=== PATIENT | female | born 1980 | race Caucasian/White ===

== ENCOUNTER 2017-04-11 13:48 | Emergency (ER) | payer MEDICAID ==
[~2017-04-11] VITALS: Ht 162.6 cm; Wt 86.2 kg
[2017-04-11] MEDS ORDERED: cloNIDine HCL 0.1 MG TAB ONE (14:24)
[2017-04-11] MEDS ORDERED: cloNIDine HCL 0.1 MG TAB PO ONE ×2 (14:30→16:45)
[2017-04-11 15:11] LABS: Basophils # (auto) 0 uL; Basophils % (auto) 0.4 % (0.0-2.0); Eosinophils # (auto) 0.1 uL; Eosinophils % (auto) 1.7 % (0.0-7.0); Hemoglobin 12.4 g/dL (12.2-16.2); Lymphocytes % (auto) 34.9 % (10.0-50.0); Mean Corpuscular Hemoglobin 26.3 pg (28.0-32.0); Mean Corpuscular Hgb Conc. 33.5 g/dL (32.0-36.0); Mean Corpuscular Volume 78.7 fL (80.0-100.0); Mean Platelet Volume 6.1 fL (6.9-10.8); Monocytes # (auto) 0.7 uL; Monocytes % (auto) 7.7 % (0.0-12.0); Neutrophils # (auto) 4.7 uL; Neutrophils % (auto) 55.3 % (37.0-80.0); Nucleated Red Blood Cells % 0.1 %; Platelet Count (auto) 366 10^3/uL (140-450); White Blood Cell 8.5 10^3/uL (4.4-10.8)
[2017-04-11 15:28] LABS: Albumin 3.4 g/dL (3.4-5.0); Anion Gap 4 (5-15); Aspartate Aminotransferase 27 U/L (15-37); BUN/Creatinine Ratio 15.7; Blood Urea Nitrogen 11 mg/dL (7-18); Calcium 8.5 mg/dL (8.5-10.1); Carbon Dioxide 29 mmol/L (21-32); Chloride 109 mmol/L (98-107); GFR African American 123 mL/min; GFR Non-African American 102 mL/min; Glucose 106 mg/dL (74-106); Sodium 142 mmol/L (136-145)
[2017-04-11 15:30] LABS: Alkaline Phosphatase 137 U/L (45-117); Bilirubin, Total < 0.1 mg/dL (0.2-1.0); Total Protein 7.6 g/dL (6.4-8.2)
[2017-04-11] MEDS ORDERED: LORazepam 2MG/ML-1ML VIAL IV ONE (16:45)
[2017-04-11] MEDS ORDERED: LABETALOL HCL 5 MG/ML 4ML SYRINGE IV ONE (17:15)
[2017-04-11 18:09] VITALS: BP 141/93
== END 2017-04-11 17:50 | disposition home or self-care (01) ==
LOC: ER 13:48
DX: I10 Essential (primary) hypertension (principal); E11.9 Type 2 diabetes mellitus without complications; F41.9 Anxiety disorder, unspecified; F17.210 Nicotine dependence, cigarettes, uncomplicated
CPT/HCPCS: 36415; 80053; 85025; 93005; 96374; 96375; 99285; J2060; J3490

== ENCOUNTER 2017-05-03 15:16 | Emergency (ER) | payer MEDICAID ==
[~2017-05-03] VITALS: Ht 162.6 cm; Wt 90.7 kg
[2017-05-03 15:33] VITALS: BP 153/104
== END 2017-05-03 15:57 | disposition home or self-care (01) ==
LOC: ER 15:21
DX: F41.9 Anxiety disorder, unspecified (principal); Z76.0 Encounter for issue of repeat prescription; G89.29 Other chronic pain; M54.40 Lumbago with sciatica, unspecified side; E11.9 Type 2 diabetes mellitus without complications; I10 Essential (primary) hypertension; F17.210 Nicotine dependence, cigarettes, uncomplicated

== ENCOUNTER 2017-05-24 13:59 | Emergency (ER) | payer MEDICAID ==
[~2017-05-24] VITALS: Ht 162.6 cm; Wt 90.7 kg
[2017-05-24 14:10] VITALS: BP 134/94
== END 2017-05-24 15:33 | disposition home or self-care (01) ==
LOC: ER 13:59
DX: J20.9 Acute bronchitis, unspecified (principal); F41.9 Anxiety disorder, unspecified; E11.9 Type 2 diabetes mellitus without complications; I10 Essential (primary) hypertension; F17.210 Nicotine dependence, cigarettes, uncomplicated

== ENCOUNTER 2017-06-02 03:05 | Emergency (ER) | payer MEDICAID ==
[~2017-06-02] VITALS: Ht 162.6 cm; Wt 90.7 kg
[2017-06-02 03:53] VITALS: BP 108/87
[2017-06-02] MEDS ORDERED: LORazepam 0.5 MG TAB PO ONE (04:00)
== END 2017-06-02 04:04 | disposition home or self-care (01) ==
LOC: ER 03:06
DX: F41.0 Panic disorder [episodic paroxysmal anxiety] (principal); E11.9 Type 2 diabetes mellitus without complications; I10 Essential (primary) hypertension; F17.210 Nicotine dependence, cigarettes, uncomplicated

== ENCOUNTER 2017-06-10 15:44 | Emergency (ER) | payer MEDICAID ==
[~2017-06-10] VITALS: Ht 162.6 cm; Wt 81.6 kg
[2017-06-10 17:13] VITALS: BP 160/102
== END 2017-06-10 17:50 | disposition home or self-care (01) ==
LOC: ER 15:50
DX: F41.9 Anxiety disorder, unspecified (principal); E11.9 Type 2 diabetes mellitus without complications; I10 Essential (primary) hypertension; F17.210 Nicotine dependence, cigarettes, uncomplicated; Z76.0 Encounter for issue of repeat prescription

== ENCOUNTER 2017-06-17 19:47 | Emergency (ER) | payer MEDICAID ==
[~2017-06-17] VITALS: Ht 162.6 cm; Wt 95.7 kg
[2017-06-17 20:53] VITALS: BP 151/98
[2017-06-17] MEDS ORDERED: ALPRAZolam 0.5 MG TAB PO ONE (21:30)
== END 2017-06-17 21:39 | disposition home or self-care (01) ==
LOC: ER 19:47
DX: F41.9 Anxiety disorder, unspecified (principal); I10 Essential (primary) hypertension; E11.9 Type 2 diabetes mellitus without complications; F17.210 Nicotine dependence, cigarettes, uncomplicated; Z76.0 Encounter for issue of repeat prescription
CPT/HCPCS: 82962

== ENCOUNTER 2017-07-08 03:12 | Emergency (ER) | payer MEDICAID ==
[~2017-07-08] VITALS: Ht 162.6 cm; Wt 90.7 kg
[2017-07-08 03:27] VITALS: BP 160/100
== END 2017-07-08 04:40 | disposition home or self-care (01) ==
LOC: ER 03:12
DX: F41.9 Anxiety disorder, unspecified (principal); I10 Essential (primary) hypertension; E11.9 Type 2 diabetes mellitus without complications; F17.210 Nicotine dependence, cigarettes, uncomplicated; Z59.0 Homelessness
CPT/HCPCS: 82962

== ENCOUNTER 2017-07-13 03:01 | Emergency (ER) | payer MEDICAID ==
[~2017-07-13] VITALS: Ht 162.6 cm; Wt 90.7 kg
[2017-07-13] MEDS ORDERED: ALPRAZolam 0.5 MG TAB PO ONE (04:00)
[2017-07-13] MEDS ORDERED: cloNIDine HCL 0.1 MG TAB PO ONE (04:00)
[2017-07-13 04:05] LABS: Hemoglobin 12.9 g/dL (12.2-16.2); Lymphocytes # (auto) 3.6 uL; Mean Platelet Volume 6.5 fL (6.9-10.8); Monocytes # (auto) 0.8 uL; White Blood Cell 10.9 10^3/uL (4.4-10.8)
[2017-07-13 04:06] LABS: Urine RBC None Seen /hpf (0 - 4)
[2017-07-13 04:08] LABS: Basophils # (auto) 0.2 uL; Basophils % (auto) 1.4 % (0.0-2.0); Eosinophils # (auto) 0.1 uL; Eosinophils % (auto) 1.3 % (0.0-7.0); Hematocrit 38.6 % (36.0-46.0); Lymphocytes % (auto) 33.5 % (10.0-50.0); Mean Corpuscular Hemoglobin 26.7 pg (28.0-32.0); Mean Corpuscular Hgb Conc. 33.5 g/dL (32.0-36.0); Mean Corpuscular Volume 79.7 fL (80.0-100.0); Monocytes % (auto) 7.6 % (0.0-12.0); Neutrophils # (auto) 6.1 uL; Neutrophils % (auto) 56.2 % (37.0-80.0); Nucleated Red Blood Cells % 0.1 %; Platelet Count (auto) 445 10^3/uL (140-450); Red Cell Distribution Width 17.5 % (11.8-14.3)
[2017-07-13 04:17] LABS: Urine Bilirubin Negative (Negative); Urine Blood Negative /uL (Negative); Urine Color Colorless (Yellow); Urine Glucose Normal (Normal); Urine Ketone Negative (Negative); Urine Nitrite Negative (Negative); Urine Squamous Epithelial Cell FEW /hpf (<5); Urine Urobilinogen Normal (Negative)
[2017-07-13 06:00] VITALS: BP 144/72
[2017-07-13 08:24] LABS: Potassium 3.5 mmol/L (3.5-5.1)
[2017-07-13 08:25] LABS: BUN/Creatinine Ratio 17.1; Calcium 8.5 mg/dL (8.5-10.1)
== END 2017-07-13 07:36 | disposition home or self-care (01) ==
LOC: ER 03:03
DX: N39.0 Urinary tract infection, site not specified (principal); F17.210 Nicotine dependence, cigarettes, uncomplicated; E11.9 Type 2 diabetes mellitus without complications; I10 Essential (primary) hypertension; Z87.440 Personal history of urinary (tract) infections
CPT/HCPCS: 36415; 80048; 81001; 81025; 84702; 85025

== ENCOUNTER 2017-07-15 22:02 | Emergency (ER) | payer MEDICAID ==
[~2017-07-15] VITALS: Ht 162.6 cm; Wt 68.0 kg
[2017-07-15] MEDS: cloNIDine HCL 0.1 MG TAB PO ONE (22:39)
[2017-07-15] MEDS: LORazepam 0.5 MG TAB PO ONE (22:58)
[2017-07-16 07:52] VITALS: BP 125/83
== END 2017-07-16 08:02 | disposition home or self-care (01) ==
LOC: EDBD 22:02 → ER 22:06
DX: S93.402A Sprain of unspecified ligament of left ankle, initial encounter (principal); F41.9 Anxiety disorder, unspecified; I16.0 Hypertensive urgency; E11.9 Type 2 diabetes mellitus without complications; F17.210 Nicotine dependence, cigarettes, uncomplicated; Z87.440 Personal history of urinary (tract) infections; W19.XXXA Unspecified fall, initial encounter; Y93.89 Activity, other specified; Y92.89 Other specified places as the place of occurrence of the external cause; Y99.8 Other external cause status
CPT/HCPCS: 73610; 81025

== ENCOUNTER 2017-08-20 03:49 | Emergency (ER) | payer MEDICAID ==
[~2017-08-20] VITALS: Ht 162.6 cm; Wt 92.5 kg
[2017-08-20 04:32] VITALS: BP 203/126
[2017-08-20] MEDS ORDERED: cloNIDine HCL 0.1 MG TAB PO ONE (04:45)
[2017-08-20] MEDS ORDERED: KETOROLAC TROMETH 60MG/2ML VIAL IM ONE (05:00)
[2017-08-20] MEDS ORDERED: HYDROcodone-ACET 10/325MG TAB PO ONE (05:15)
== END 2017-08-20 06:07 | disposition home or self-care (01) ==
LOC: ER 03:53
DX: S33.5XXA Sprain of ligaments of lumbar spine, initial encounter (principal); M54.30 Sciatica, unspecified side; E11.9 Type 2 diabetes mellitus without complications; I10 Essential (primary) hypertension; G89.29 Other chronic pain; M54.9 Dorsalgia, unspecified; F17.210 Nicotine dependence, cigarettes, uncomplicated; Z87.440 Personal history of urinary (tract) infections; X58.XXXA Exposure to other specified factors, initial encounter; Y93.89 Activity, other specified; Y92.89 Other specified places as the place of occurrence of the external cause; Y99.8 Other external cause status
CPT/HCPCS: 96372; 99283; J1885

== ENCOUNTER 2017-09-14 02:51 | Emergency (ER) | payer MEDICAID ==
[~2017-09-14] VITALS: Ht 162.6 cm; Wt 90.7 kg
[2017-09-14 03:02] VITALS: BP 174/116
[2017-09-14] MEDS ORDERED: cloNIDine HCL 0.1 MG TAB ONE (03:08)
[2017-09-14] MEDS ORDERED: clonazePAM 0.5 MG TAB PO ONE (03:15)
[2017-09-14] MEDS ORDERED: cloNIDine HCL 0.1 MG TAB PO ONE (03:15)
[2017-09-14 04:06] LABS: Urine Bacteria NONE SEEN /hpf (None Seen); Urine Blood TRACE /uL (Negative); Urine Mucus FEW (None Seen); Urine Specific Gravity 1.014 (1.001-1.035); Urine WBC 8 /hpf (0 - 5)
== END 2017-09-14 05:34 | disposition left against medical advice (07) ==
LOC: ER 02:53
DX: M54.9 Dorsalgia, unspecified (principal); Z53.21 Procedure and treatment not carried out due to patient leaving prior to being seen by health care provider
CPT/HCPCS: 81001; 81025

== ENCOUNTER 2017-09-23 00:05 | Emergency (ER) | payer MEDICAID ==
[~2017-09-23] VITALS: Ht 162.6 cm; Wt 86.2 kg
[2017-09-23 02:01] VITALS: BP 142/98
== END 2017-09-23 02:45 | disposition home or self-care (01) ==
LOC: ER 00:05
DX: F41.9 Anxiety disorder, unspecified (principal); E11.9 Type 2 diabetes mellitus without complications; F17.210 Nicotine dependence, cigarettes, uncomplicated; I10 Essential (primary) hypertension; Z87.440 Personal history of urinary (tract) infections

== ENCOUNTER 2017-10-27 02:14 | Emergency (ER) | payer OTHER, MEDICAID ==
[~2017-10-27] VITALS: Ht 160 cm; Wt 91.2 kg
[2017-10-27 02:20] VITALS: BP 181/118
[2017-10-27] MEDS ORDERED: cloNIDine HCL 0.1 MG TAB ONE (02:45)
[2017-10-27 04:29] LABS: Urine Bacteria NONE SEEN /hpf (None Seen); Urine Blood Negative /uL (Negative); Urine Specific Gravity 1.011 (1.001-1.035); Urine WBC 1 /hpf (0 - 5)
== END 2017-10-27 06:36 | disposition left against medical advice (07) ==
LOC: ER 02:14
DX: M54.9 Dorsalgia, unspecified (principal); R21 Rash and other nonspecific skin eruption; Z53.21 Procedure and treatment not carried out due to patient leaving prior to being seen by health care provider
CPT/HCPCS: 81001

== ENCOUNTER 2017-11-18 23:33 | Observation (INO) | payer OTHER ==
[~2017-11-18] VITALS: Ht 162.6 cm; Wt 89.8 kg
[2017-11-19] MEDS ORDERED: SODIUM CHLORIDE 0.9% 1,000 ML IV ONE
[2017-11-19 00:16] LABS: Basophils # (auto) 0 uL; Basophils % (auto) 0.3 % (0.0-2.0); Eosinophils # (auto) 0.2 uL; Eosinophils % (auto) 1.5 % (0.0-7.0); Hematocrit 41.3 % (36.0-46.0); Hemoglobin 13.6 g/dL (12.2-16.2); Lymphocytes # (auto) 3.6 uL; Mean Corpuscular Hemoglobin 27.5 pg (28.0-32.0); Mean Corpuscular Hgb Conc. 32.8 g/dL (32.0-36.0); Monocytes # (auto) 0.8 uL; Neutrophils # (auto) 7.4 uL; Neutrophils % (auto) 61.2 % (37.0-80.0); Platelet Count (auto) 409 10^3/uL (140-450); Red Blood Cells 4.92 10^6/uL (4.0-5.20); Red Cell Distribution Width 15.5 % (11.8-14.3); White Blood Cell 12.1 10^3/uL (4.4-10.8)
[2017-11-19 00:25] LABS: Urine Bacteria NONE SEEN /hpf (None Seen); Urine WBC 10 /hpf (0 - 5)
[2017-11-19 00:26] LABS: Urine Blood 1+ /uL (Negative); Urine Specific Gravity 1.022 (1.001-1.035)
[2017-11-19 00:32] LABS: Alanine Aminotransferase 24 U/L (13-56); Albumin 3.7 g/dL (3.4-5.0); Anion Gap 9 (5-15); Aspartate Aminotransferase 19 U/L (15-37); Blood Alcohol < 3.0 mg/dL (0-5); Calcium 8.8 mg/dL (8.5-10.1); Carbon Dioxide 24 mmol/L (21-32); Chloride 106 mmol/L (98-107); Glucose 217 mg/dL (74-106); Potassium 3.8 mmol/L (3.5-5.1); Salicylate 1.9 mg/dL (2.8-20.0); Sodium 139 mmol/L (136-145)
[2017-11-19 00:33] LABS: Acetaminophen < 2.0 ug/mL (10-30)
[2017-11-19 00:35] LABS: Alcohol, Urine < 3.0 mg/dL (0-5); Amphetamine Screen, Urine NEGATIVE (NEGATIVE); Barbiturate Scree,Urine NEGATIVE (NEGATIVE); Benzodiazephine Screen, Urine NEGATIVE (NEGATIVE); Cannabinoid Screen, Urine NEGATIVE (NEGATIVE); Cocaine Screen, Urine NEGATIVE (NEGATIVE); Opiate Scree,Urine NEGATIVE (NEGATIVE); Phencyclidine Screen, Urine POSITIVE (NEGATIVE)
[2017-11-19 00:41] LABS: Alkaline Phosphatase 117 U/L (45-117); BUN/Creatinine Ratio 17.8; Bilirubin, Total 0.2 mg/dL (0.2-1.0); Blood Urea Nitrogen 13 mg/dL (7-18); GFR African American 117 mL/min; GFR Non-African American 96 mL/min; Total Protein 8.1 g/dL (6.4-8.2)
[2017-11-19] MEDS ORDERED: ACETAMINOPHEN 325 MG TAB PO ONE (02:45)
[2017-11-19] MEDS ORDERED: cloNIDine HCL 0.1 MG TAB PO ONE (06:30)
[2017-11-19] MEDS ORDERED: IBUPROFEN 800 MG TAB PO PRN (10:30)
[2017-11-19] MEDS ORDERED: GABAPENTIN 300 MG CAP ONE (15:32)
[2017-11-19] MEDS ORDERED: LORazepam 0.5 MG TAB PO ONE (16:30)
[2017-11-19 20:16] VITALS: BP 139/96
[2017-11-19] MEDS ORDERED: metFORMIN HYDROCHLORIDE 500 MG TAB PO SCH (22:00)
[2017-11-19] MEDS ORDERED: ACCU-CHEK COMFORT CURVE STRIP VI SCH (22:00)
[2017-11-19] MEDS ORDERED: GABAPENTIN 300 MG CAP PO SCH (22:00)
[2017-11-20] MEDS ORDERED: LISINOPRIL 20 MG TAB PO SCH (10:00)
[2017-11-20] MEDS ORDERED: CITALOPRAM HYDROBR 20 MG TAB PO SCH (10:00)
== END 2017-11-19 20:25 | disposition short-term general hospital (02) | DRG 880 ==
LOC: ER 23:35 → OVERFLOW 23:36 → ER 11-19 20:25
PROVIDERS: ADMIT Emergency Medicine; ATTEND Emergency Medicine
DX: R45.851 Suicidal ideations (principal); E11.9 Type 2 diabetes mellitus without complications; F32.9 Major depressive disorder, single episode, unspecified; F41.9 Anxiety disorder, unspecified; I10 Essential (primary) hypertension; F17.210 Nicotine dependence, cigarettes, uncomplicated
CPT/HCPCS: 36415; 71045; 80053; 80307; 80320; 80329; 81001; 81025; 82962; 83735; 85025; 93005; 96360; 96361; 99285; G0378; J7030

== ENCOUNTER 2018-05-26 19:14 | Emergency (ER) | payer MEDICAID, OTHER ==
[~2018-05-26] VITALS: Ht 162.6 cm; Wt 92.1 kg
[2018-05-26 19:25] VITALS: BP 196/91
[2018-05-26] MEDS ORDERED: cefTRIAXone SOD 1,000 MG VL IM ONE (20:15)
[2018-05-26] MEDS ORDERED: Acetam/CODEINE 120mg/12mg per 5mL UD PO ONE (20:15)
== END 2018-05-26 20:27 | disposition home or self-care (01) ==
LOC: ER 19:14
DX: J02.0 Streptococcal pharyngitis (principal); E11.9 Type 2 diabetes mellitus without complications; I10 Essential (primary) hypertension; F17.210 Nicotine dependence, cigarettes, uncomplicated
CPT/HCPCS: 96372; 99283; J0696

== ENCOUNTER 2018-05-26 23:20 | Emergency (ER) | payer MEDICAID, OTHER ==
[~2018-05-26] VITALS: Ht 160 cm; Wt 99.8 kg
[2018-05-26 23:27] VITALS: BP 156/91
[2018-05-27] MEDS ORDERED: LORazepam 2MG/ML-1ML VIAL IM ONE (06:00)
== END 2018-05-27 06:07 | disposition home or self-care (01) ==
LOC: EDBD 23:20 → ER 23:20
DX: F45.8 Other somatoform disorders (principal); F41.9 Anxiety disorder, unspecified; I10 Essential (primary) hypertension; F17.210 Nicotine dependence, cigarettes, uncomplicated
CPT/HCPCS: 96372; 99283; J2060

== ENCOUNTER 2018-06-01 15:48 | Emergency (ER) | payer MEDICAID ==
[~2018-06-01] VITALS: Ht 162.6 cm; Wt 90.7 kg
[2018-06-01] MEDS ORDERED: METOPROLOL TARTRATE 50 MG TAB PO ONE (16:15)
[2018-06-01] MEDS ORDERED: cloNIDine HCL 0.1 MG TAB PO ONE (16:15)
[2018-06-01] MEDS ORDERED: LORazepam 2MG/ML-1ML VIAL IM ONE (18:15)
[2018-06-01 18:26] VITALS: BP 158/98
== END 2018-06-01 18:37 | disposition home or self-care (01) ==
LOC: ER 16:01
DX: I10 Essential (primary) hypertension (principal); F41.1 Generalized anxiety disorder; F17.210 Nicotine dependence, cigarettes, uncomplicated; Z76.0 Encounter for issue of repeat prescription
CPT/HCPCS: 96372; 99283; J2060

== ENCOUNTER 2018-06-07 13:29 | Emergency (ER) | payer MEDICAID ==
[~2018-06-07] VITALS: Ht 162.6 cm; Wt 90.7 kg
[2018-06-07 14:17] VITALS: BP 153/105
== END 2018-06-07 15:15 | disposition home or self-care (01) ==
LOC: ER 13:29
DX: K04.7 Periapical abscess without sinus (principal); I10 Essential (primary) hypertension; F17.210 Nicotine dependence, cigarettes, uncomplicated

== ENCOUNTER 2018-10-22 04:53 | Emergency (ER) | payer MEDICAID ==
[~2018-10-22] VITALS: Ht 162.6 cm; Wt 90.7 kg
[2018-10-22] MEDS ORDERED: cloNIDine HCL 0.1 MG TAB PO ONE (05:15)
[2018-10-22] MEDS ORDERED: KETOROLAC TROMETH 60MG/2ML VIAL IM ONE (06:45)
[2018-10-22 07:05] VITALS: BP 158/100
== END 2018-10-22 07:43 | disposition home or self-care (01) ==
LOC: ER 04:53
DX: K08.89 Other specified disorders of teeth and supporting structures (principal); I10 Essential (primary) hypertension; F17.210 Nicotine dependence, cigarettes, uncomplicated
CPT/HCPCS: 96372; 99283; J1885

== ENCOUNTER 2018-12-17 03:44 | Emergency (ER) | payer MEDICAID ==
[~2018-12-17] VITALS: Ht 162.6 cm; Wt 86.2 kg
[2018-12-17] MEDS ORDERED: cloNIDine HCL 0.1 MG TAB PO ONE (04:30)
[2018-12-17] MEDS ORDERED: HYDROcodone-ACET 10/325MG TAB PO ONE (04:30)
[2018-12-17 06:11] LABS: Basophils # (auto) 0 uL; Basophils % (auto) 0.4 % (0.0-2.0); Eosinophils # (auto) 0.1 uL; Eosinophils % (auto) 0.9 % (0.0-7.0); Hemoglobin 11.7 g/dL (12.2-16.2); Lymphocytes # (auto) 2.3 uL; Lymphocytes % (auto) 21.6 % (10.0-50.0); Mean Corpuscular Hemoglobin 25.3 pg (28.0-32.0); Mean Corpuscular Hgb Conc. 32.5 g/dL (32.0-36.0); Mean Corpuscular Volume 77.9 fL (80.0-100.0); Monocytes # (auto) 0.7 uL; Monocytes % (auto) 6.8 % (0.0-12.0); Neutrophils # (auto) 7.4 uL; Neutrophils % (auto) 70.3 % (37.0-80.0); Nucleated Red Blood Cells % 0.1 %; Platelet Count (auto) 360 10^3/uL (140-450); Red Blood Cells 4.63 10^6/uL (4.0-5.20); Red Cell Distribution Width 18.8 % (11.8-14.3); White Blood Cell 10.5 10^3/uL (4.4-10.8)
[2018-12-17 06:29] LABS: Anion Gap 6 (5-15); Blood Urea Nitrogen 23 mg/dL (7-18); Calcium 8.6 mg/dL (8.5-10.1); Carbon Dioxide 24 mmol/L (21-32); Chloride 109 mmol/L (98-107); Glucose 149 mg/dL (74-106); Potassium 3.7 mmol/L (3.5-5.1); Sodium 139 mmol/L (136-145)
[2018-12-17 06:34] LABS: Alanine Aminotransferase 29 U/L (13-56); Albumin 3.3 g/dL (3.4-5.0); Alkaline Phosphatase 131 U/L (45-117); Aspartate Aminotransferase 22 U/L (15-37); BUN/Creatinine Ratio 29.9; Bilirubin, Total < 0.1 mg/dL (0.2-1.0); GFR African American 109 mL/min; GFR Non-African American 90 mL/min; Total Protein 7.5 g/dL (6.4-8.2)
[2018-12-17 07:00] LABS: Urine Amorphous Crystal FEW /hpf (None Seen); Urine Bacteria FEW /hpf (None Seen); Urine Blood Negative /uL (Negative); Urine Specific Gravity 1.021 (1.001-1.035); Urine WBC 6 /hpf (0 - 5)
[2018-12-17] MEDS ORDERED: LORazepam 0.5 MG TAB PO ONE (08:00)
[2018-12-17] MEDS ORDERED: cefTRIAXone SOD 1,000 MG VL IM ONE (08:15)
[2018-12-17 08:26] VITALS: BP 126/78
[2018-12-17] MEDS ORDERED: cefTRIAXone W LIDOCAINE 1 GM IM IM ONE (08:30)
[2018-12-17] MEDS ORDERED: cefTRIAXone SOD 1,000 MG VL ONE (08:46)
[2018-12-17] MEDS ORDERED: LIDOCAINE 2% (LOCAL ANESTH.) PF 5ml SDV ONE (08:46)
== END 2018-12-17 09:20 | disposition home or self-care (01) ==
LOC: ER 03:47
DX: S33.5XXA Sprain of ligaments of lumbar spine, initial encounter (principal); N39.0 Urinary tract infection, site not specified; M79.18 Myalgia, other site; I10 Essential (primary) hypertension; F17.210 Nicotine dependence, cigarettes, uncomplicated; X58.XXXA Exposure to other specified factors, initial encounter; Y93.89 Activity, other specified; Y92.89 Other specified places as the place of occurrence of the external cause; Y99.8 Other external cause status
CPT/HCPCS: 36415; 72125; 72131; 80053; 81001; 82962; 85025; 96372; 99284; J0696; J2001

== ENCOUNTER 2018-12-24 17:17 | Emergency (ER) | payer MEDICAID ==
[~2018-12-24] VITALS: Ht 162.6 cm; Wt 86.2 kg
[2018-12-24 17:27] VITALS: BP 173/108
== END 2018-12-24 20:51 | disposition left against medical advice (07) ==
LOC: ER 17:20
DX: Z76.0 Encounter for issue of repeat prescription (principal); Z53.21 Procedure and treatment not carried out due to patient leaving prior to being seen by health care provider

== ENCOUNTER 2019-04-05 05:35 | Emergency (ER) | payer MEDICAID ==
[~2019-04-05] VITALS: Ht 162.6 cm; Wt 94.5 kg
[2019-04-05] MEDS ORDERED: METOPROLOL TARTRATE 50 MG TAB PO ONE (06:45)
[2019-04-05] MEDS ORDERED: PROMETHAZINE HCL 25 MG/ML 1ML IM ONE (06:45)
[2019-04-05] MEDS ORDERED: cloNIDine HCL 0.1 MG TAB PO ONE (06:45)
[2019-04-05] MEDS ORDERED: HYDROmorphone HCL 2 MG/ML VL IM ONE (06:45)
[2019-04-05 07:59] VITALS: BP 169/110
== END 2019-04-05 08:09 | disposition home or self-care (01) ==
LOC: ER 05:35
DX: G89.29 Other chronic pain (principal); M54.5 Low back pain; F41.8 Other specified anxiety disorders; I10 Essential (primary) hypertension; E11.9 Type 2 diabetes mellitus without complications; F17.210 Nicotine dependence, cigarettes, uncomplicated
CPT/HCPCS: 96372; 99284; J1170; J2550

== ENCOUNTER 2019-04-14 08:27 | Emergency (ER) | payer MEDICAID ==
[~2019-04-14] VITALS: Ht 162.6 cm; Wt 93.0 kg
[2019-04-14] MEDS ORDERED: cloNIDine HCL 0.1 MG TAB PO ONE (09:45)
[2019-04-14 10:33] VITALS: BP 126/74
== END 2019-04-14 10:38 | disposition home or self-care (01) ==
LOC: ER 08:27
DX: F41.9 Anxiety disorder, unspecified (principal); I10 Essential (primary) hypertension; E11.9 Type 2 diabetes mellitus without complications; F17.210 Nicotine dependence, cigarettes, uncomplicated; Z87.440 Personal history of urinary (tract) infections

== ENCOUNTER 2019-09-04 00:23 | Emergency (ER) | payer MEDICAID ==
[~2019-09-04] VITALS: Ht 162.6 cm; Wt 95.3 kg
[2019-09-04] MEDS ORDERED: cloNIDine HCL 0.1 MG TAB ONE (00:45)
[2019-09-04] MEDS ORDERED: cloNIDine HCL 0.1 MG TAB PO ONE (01:00)
[2019-09-04] MEDS ORDERED: cefTRIAXone SOD 1,000 MG VL IM ONE (01:45)
[2019-09-04] MEDS ORDERED: TETANUS-DIPTH-ACEL PERTUSSIS 0.5ML SYRG IM ONE (01:45)
[2019-09-04] MEDS ORDERED: NEOMYCIN-BACITRACIN-POLYM UNITDOSE PKG TOP OINT TOP ONE (01:45)
[2019-09-04 03:06] LABS: Urine Bacteria FEW /hpf (None Seen); Urine Blood TRACE /uL (Negative); Urine Specific Gravity 1.008 (1.001-1.035); Urine WBC 2 /hpf (0 - 5)
[2019-09-04] MEDS ORDERED: ALPRAZolam 0.5 MG TAB PO ONE (03:15)
[2019-09-04 03:50] VITALS: BP 138/78
== END 2019-09-04 04:30 | disposition home or self-care (01) ==
LOC: ER 00:23
DX: S60.512A Abrasion of left hand, initial encounter (principal); S61.452A Open bite of left hand, initial encounter; I10 Essential (primary) hypertension; F41.9 Anxiety disorder, unspecified; N39.0 Urinary tract infection, site not specified; E11.9 Type 2 diabetes mellitus without complications; W54.0XXA Bitten by dog, initial encounter; Y93.89 Activity, other specified; Y92.89 Other specified places as the place of occurrence of the external cause; Y99.8 Other external cause status
CPT/HCPCS: 81001; 81025; 82962; 90471; 90715; 96372; 99284; J0696

== ENCOUNTER 2019-09-21 18:36 | Emergency (ER) | payer MEDICAID ==
[~2019-09-21] VITALS: Ht 162.6 cm; Wt 97.1 kg
[2019-09-21 18:42] VITALS: BP 109/77
[2019-09-21 19:31] LABS: Basophils # (auto) 0.1 uL; Basophils % (auto) 0.6 % (0.0-2.0); Eosinophils # (auto) 0.1 uL; Eosinophils % (auto) 0.8 % (0.0-7.0); Hematocrit 38.3 % (36.0-46.0); Hemoglobin 12.9 g/dL (12.2-16.2); Lymphocytes # (auto) 2.5 uL; Lymphocytes % (auto) 23.7 % (10.0-50.0); Mean Corpuscular Hgb Conc. 33.5 g/dL (32.0-36.0); Mean Corpuscular Volume 89.5 fL (80.0-100.0); Monocytes # (auto) 0.7 uL; Monocytes % (auto) 6.3 % (0.0-12.0); Neutrophils # (auto) 7.2 uL; Neutrophils % (auto) 68.6 % (37.0-80.0); Platelet Count (auto) 403 10^3/uL (140-450); Red Blood Cells 4.28 10^6/uL (4.0-5.20); Red Cell Distribution Width 14.5 % (11.8-14.3); White Blood Cell 10.5 10^3/uL (4.4-10.8)
[2019-09-21 19:50] LABS: Alanine Aminotransferase 29 U/L (13-56); Albumin 3.3 g/dL (3.4-5.0); Anion Gap 7 (5-15); BUN/Creatinine Ratio 20.9; Blood Urea Nitrogen 23 mg/dL (7-18); Calcium 8.8 mg/dL (8.5-10.1); Carbon Dioxide 25 mmol/L (21-32); Chloride 104 mmol/L (98-107); GFR African American 72 mL/min; GFR Non-African American 60 mL/min; Glucose 336 mg/dL (74-106); Sodium 136 mmol/L (136-145)
[2019-09-21 19:57] LABS: Alkaline Phosphatase 104 U/L (45-117); Aspartate Aminotransferase 17 U/L (15-37); Bilirubin, Total 0.3 mg/dL (0.2-1.0); Total Protein 7.1 g/dL (6.4-8.2)
== END 2019-09-21 21:39 | disposition left against medical advice (07) ==
LOC: ER 18:38
DX: R07.89 Other chest pain (principal); Z53.21 Procedure and treatment not carried out due to patient leaving prior to being seen by health care provider
CPT/HCPCS: 36415; 80053; 84484; 85025; 93005

== ENCOUNTER 2020-03-15 17:23 | Emergency (ER) | payer MEDICAID ==
[~2020-03-15] VITALS: Ht 162.6 cm; Wt 95.3 kg
[2020-03-15 18:24] VITALS: BP 125/83
[2020-03-15] MEDS ORDERED: SODIUM CHLORIDE 0.9% 1,000 ML IV ONE (20:00)
[2020-03-15] MEDS ORDERED: InsuLIN REG 1unit/0.01ml Soln (100units/ml) IV ONE (20:00)
[2020-03-15 20:01] LABS: Urine Bacteria NONE SEEN /hpf (None Seen); Urine Blood Negative /uL (Negative); Urine Specific Gravity 1.035 (1.001-1.035); Urine WBC 1 /hpf (0 - 5)
[2020-03-15 20:30] LABS: Basophils # (auto) 0 10 ^3/uL (0-0.2); Basophils % (auto) 0.2 % (0.0-2.0); Eosinophils # (auto) 0.2 10 ^3/uL (0-0.8); Eosinophils % (auto) 2.2 % (0.0-7.0); Hematocrit 37.2 % (36.0-46.0); Hemoglobin 12.2 g/dL (12.2-16.2); Lymphocytes # (auto) 2.3 10 ^3/uL (0.4-5.4); Lymphocytes % (auto) 33.5 % (10.0-50.0); Mean Corpuscular Hemoglobin 28.9 pg (28.0-32.0); Mean Corpuscular Hgb Conc. 32.9 g/dL (32.0-36.0); Mean Corpuscular Volume 88.1 fL (80.0-100.0); Monocytes # (auto) 0.6 10 ^3/uL (0-1.3); Monocytes % (auto) 9.4 % (0.0-12.0); Neutrophils # (auto) 3.7 10 ^3/uL (1.6-8.6); Neutrophils % (auto) 54.7 % (37.0-80.0); Platelet Count (auto) 350 10^3/uL (140-450); Red Blood Cells 4.22 10^6/uL (4.0-5.20); Red Cell Distribution Width 14.7 % (11.8-14.3); White Blood Cell 6.8 10^3/uL (4.4-10.8)
[2020-03-15 20:42] LABS: INR 1.06 (0.9-1.15); Partial Thromboplastin Time 28.6 sec (23.0-31.2)
[2020-03-15 20:50] LABS: Albumin 3.4 g/dL (3.4-5.0); BUN/Creatinine Ratio 15.9; Calcium 8.2 mg/dL (8.5-10.1); Potassium 3.8 mmol/L (3.5-5.1)
[2020-03-15 21:00] LABS: Bilirubin, Total 0.3 mg/dL (0.2-1.0); Total Protein 6.7 g/dL (6.4-8.2)
== END 2020-03-15 20:36 | disposition left against medical advice (07) ==
LOC: ER 17:23
DX: E11.65 Type 2 diabetes mellitus with hyperglycemia (principal); R55 Syncope and collapse; R53.1 Weakness; I10 Essential (primary) hypertension; F17.210 Nicotine dependence, cigarettes, uncomplicated
CPT/HCPCS: 36415; 80053; 81001; 81025; 82010; 82962; 84484; 85025; 85610; 85730

== ENCOUNTER 2020-04-09 01:54 | Emergency (ER) | payer MEDICAID ==
[~2020-04-09] VITALS: Ht 162.6 cm; Wt 95.3 kg
[2020-04-09 02:03] VITALS: BP 196/128
[2020-04-09] MEDS ORDERED: cloNIDine HCL 0.1 MG TAB PO ONE (02:15)
[2020-04-09] MEDS ORDERED: KETOROLAC TROMETH 60MG/2ML VIAL IM ONE (05:15)
== END 2020-04-09 05:56 | disposition home or self-care (01) ==
LOC: ER 01:56
DX: S43.492A Other sprain of left shoulder joint, initial encounter (principal); F17.210 Nicotine dependence, cigarettes, uncomplicated; F41.9 Anxiety disorder, unspecified; E11.9 Type 2 diabetes mellitus without complications; I10 Essential (primary) hypertension; Z87.440 Personal history of urinary (tract) infections; X58.XXXA Exposure to other specified factors, initial encounter; Y93.B9 Activity, other involving muscle strengthening exercises; Y92.89 Other specified places as the place of occurrence of the external cause; Y99.8 Other external cause status
CPT/HCPCS: 29105; 73030; 96372; 99283; J1885

== ENCOUNTER 2020-08-31 01:01 | Emergency (ER) | payer MEDICAID ==
[~2020-08-31] VITALS: Ht 162.6 cm; Wt 83.0 kg
[2020-08-31] MEDS ORDERED: cloNIDine HCL 0.1 MG TAB PO ONE (01:15)
[2020-08-31 01:58] VITALS: BP 162/96
[2020-08-31 02:32] LABS: Basophils # (auto) 0 10 ^3/uL (0-0.2); Basophils % (auto) 0.3 % (0.0-2.0); Eosinophils # (auto) 0.1 10 ^3/uL (0-0.8); Eosinophils % (auto) 0.7 % (0.0-7.0); Hematocrit 36.7 % (36.0-46.0); Hemoglobin 12.7 g/dL (12.2-16.2); Lymphocytes # (auto) 2.5 10 ^3/uL (0.4-5.4); Lymphocytes % (auto) 20.1 % (10.0-50.0); Mean Corpuscular Hemoglobin 30.3 pg (28.0-32.0); Mean Corpuscular Hgb Conc. 34.6 g/dL (32.0-36.0); Mean Corpuscular Volume 87.5 fL (80.0-100.0); Monocytes # (auto) 1.1 10 ^3/uL (0-1.3); Monocytes % (auto) 8.7 % (0.0-12.0); Neutrophils # (auto) 8.7 10 ^3/uL (1.6-8.6); Neutrophils % (auto) 70.2 % (37.0-80.0); Platelet Count (auto) 444 10^3/uL (140-450); Red Cell Distribution Width 14.6 % (11.8-14.3); White Blood Cell 12.4 10^3/uL (4.4-10.8)
[2020-08-31 02:50] LABS: Albumin 3.9 g/dL (3.4-5.0); BUN/Creatinine Ratio 18.8; Calcium 9.1 mg/dL (8.5-10.1); Potassium 3.4 mmol/L (3.5-5.1)
[2020-08-31 02:53] LABS: Bilirubin, Total 0.1 mg/dL (0.2-1.0); Total Protein 7.9 g/dL (6.4-8.2)
== END 2020-08-31 04:26 | disposition left against medical advice (07) ==
LOC: ER 01:01
DX: E11.649 Type 2 diabetes mellitus with hypoglycemia without coma (principal); R42 Dizziness and giddiness; I10 Essential (primary) hypertension; F17.210 Nicotine dependence, cigarettes, uncomplicated; Z87.440 Personal history of urinary (tract) infections
CPT/HCPCS: 36415; 76705; 80053; 83605; 85025; 93005

== ENCOUNTER 2022-08-11 07:49 | Emergency (ER) | payer MEDICAID ==
[~2022-08-11] VITALS: Ht 162.6 cm; Wt 99.3 kg
[2022-08-11 08:10] LABS: Basophils # (auto) 0 10 ^3/uL (0-0.2); Eosinophils # (auto) 0 10 ^3/uL (0-0.8); Eosinophils % (auto) 0.2 % (0.0-7.0); Hemoglobin 13.3 g/dL (12.2-16.2); Monocytes # (auto) 0.8 10 ^3/uL (0-1.3); Neutrophils % (auto) 78.8 % (37.0-80.0); Nucleated Red Blood Cells % 0.1 %
[2022-08-11 08:12] LABS: Basophils % (auto) 0.3 % (0.0-2.0); Hematocrit 41.7 % (36.0-46.0); Lymphocytes % (auto) 14.8 % (10.0-50.0); Mean Corpuscular Hemoglobin 26.6 pg (28.0-32.0); Mean Corpuscular Hgb Conc. 31.9 g/dL (32.0-36.0); Mean Corpuscular Volume 83.6 fL (80.0-100.0); Monocytes % (auto) 5.9 % (0.0-12.0); Neutrophils # (auto) 10.7 10 ^3/uL (1.6-8.6); Red Blood Cells 4.98 10^6/uL (4.0-5.20); Red Cell Distribution Width 14.5 % (11.8-14.3); White Blood Cell 13.6 10^3/uL (4.4-10.8)
[2022-08-11] MEDS ORDERED: SODIUM CHLORIDE 0.9% 500 ML IV ONE (08:30)
[2022-08-11 08:44] LABS: Albumin 3.7 g/dL (3.4-5.0); BUN/Creatinine Ratio 12.3; Calcium 8.8 mg/dL (8.5-10.1); Potassium 4.1 mmol/L (3.5-5.1)
[2022-08-11 08:46] LABS: Bilirubin, Total 0.4 mg/dL (0.2-1.0); Total Protein 7.6 g/dL (6.4-8.2)
[2022-08-11 09:17] LABS: Alcohol, Urine < 3.0 mg/dL (0-10); Amphetamine Screen, Urine POSITIVE (NEGATIVE); Barbiturate Scree,Urine NEGATIVE (NEGATIVE); Benzodiazephine Screen, Urine NEGATIVE (NEGATIVE); Cannabinoid Screen, Urine NEGATIVE (NEGATIVE); Cocaine Screen, Urine NEGATIVE (NEGATIVE); Opiate Scree,Urine NEGATIVE (NEGATIVE); Phencyclidine Screen, Urine POSITIVE (NEGATIVE)
[2022-08-11] MEDS ORDERED: ALPRAZolam 0.25 MG TAB PO ONE (10:15)
[2022-08-11 12:53] VITALS: BP 151/109
== END 2022-08-11 12:57 | disposition home or self-care (01) ==
LOC: ER 07:49
DX: R07.89 Other chest pain (principal); F17.210 Nicotine dependence, cigarettes, uncomplicated; F15.10 Other stimulant abuse, uncomplicated; E11.9 Type 2 diabetes mellitus without complications; I10 Essential (primary) hypertension; Z32.02 Encounter for pregnancy test, result negative; Z79.899 Other long term (current) drug therapy
CPT/HCPCS: 36415; 71045; 80053; 80307; 81025; 82962; 83735; 83880; 84484; 85025; 85379; 93005

== ENCOUNTER 2022-08-11 22:57 | Emergency (ER) | payer MEDICAID ==
[~2022-08-11] VITALS: Ht 162.6 cm; Wt 110.0 kg
[2022-08-11 23:10] VITALS: BP 160/99
== END 2022-08-12 05:34 | disposition home or self-care (01) ==
LOC: EDBD 22:57 → EDUNIT# 22:57 → ER 22:57
DX: T45.0X1A Poisoning by antiallergic and antiemetic drugs, accidental (unintentional), initial encounter (principal); R05.9 Cough, unspecified; E11.9 Type 2 diabetes mellitus without complications; I10 Essential (primary) hypertension; F17.210 Nicotine dependence, cigarettes, uncomplicated; F15.10 Other stimulant abuse, uncomplicated; F41.9 Anxiety disorder, unspecified; F32.9 Major depressive disorder, single episode, unspecified; Y92.9 Unspecified place or not applicable
CPT/HCPCS: 93005

== ENCOUNTER 2022-08-14 00:02 | Emergency (ER) | payer MEDICAID ==
[~2022-08-14] VITALS: Ht 157.5 cm; Wt 110.0 kg
[2022-08-14 01:36] LABS: Albumin 3.2 g/dL (3.4-5.0); BUN/Creatinine Ratio 13.2; Calcium 9.2 mg/dL (8.5-10.1); Potassium 3.9 mmol/L (3.5-5.1)
[2022-08-14 01:39] LABS: Bilirubin, Total 0.2 mg/dL (0.2-1.0); Total Protein 7.3 g/dL (6.4-8.2)
[2022-08-14] MEDS ORDERED: InsuLIN REG 1unit/0.01ml Soln (100units/ml) SC ONE (06:00)
[2022-08-14 11:18] VITALS: BP 150/93
[2022-08-14] MEDS ORDERED: LISI-716 PO (11:21)
[2022-08-14] MEDS ORDERED: InsuLIN REG 1unit/0.01ml Soln (100units/ml) SC SCH ×2 (11:30→22:00)
== END 2022-08-14 12:01 | disposition home or self-care (01) ==
LOC: ER 00:02
DX: E11.65 Type 2 diabetes mellitus with hyperglycemia (principal); F41.9 Anxiety disorder, unspecified; F32.9 Major depressive disorder, single episode, unspecified; F17.210 Nicotine dependence, cigarettes, uncomplicated; F15.90 Other stimulant use, unspecified, uncomplicated; Z76.0 Encounter for issue of repeat prescription
CPT/HCPCS: 36415; 80053; 82962; 99283; J1815

== ENCOUNTER 2022-10-01 10:43 | Emergency (ER) | payer MEDICAID ==
[~2022-10-01] VITALS: Ht 162.6 cm; Wt 100.6 kg
[~2022-10-01 10:43] MED LIST: LISI-716 PO
[2022-10-01 11:41] LABS: Urine Bacteria NONE SEEN /hpf (None Seen); Urine Blood Negative /uL (Negative); Urine Specific Gravity 1.007 (1.001-1.035); Urine WBC 1 /hpf (0 - 5)
[2022-10-01] MEDS ORDERED: IBU600T PO (14:47)
[2022-10-01] MEDS ORDERED: HYDROcodone-ACET 10/325MG TAB PO ONE (15:00)
[2022-10-01 15:27] VITALS: BP 149/95
== END 2022-10-01 15:45 | disposition home or self-care (01) ==
LOC: ER 10:44
DX: S09.8XXA Other specified injuries of head, initial encounter (principal); M25.522 Pain in left elbow; F17.210 Nicotine dependence, cigarettes, uncomplicated; F15.10 Other stimulant abuse, uncomplicated; Z79.899 Other long term (current) drug therapy; W18.09XA Striking against other object with subsequent fall, initial encounter; Y93.89 Activity, other specified; Y92.89 Other specified places as the place of occurrence of the external cause; Y99.8 Other external cause status
CPT/HCPCS: 70450; 73080; 81001; 82962